=== PATIENT | male | born 1985 | race Caucasian/White ===

== ENCOUNTER 2021-11-14 15:58 | Emergency (ER) | payer OTHER ==
[~2021-11-14] VITALS: Ht 180.3 cm; Wt 81.6 kg
[2021-11-14 16:11] VITALS: BP 101/66
--- NOTE | 2021-11-14 16:26 | NUR ---
PT SEEN AND EXAMINED BY .
[2021-11-14] MEDS ORDERED: CYCLOBENZAPRINE 10 MG TABLET PO ONE (16:30)
[2021-11-14] MEDS ORDERED: KETOROLAC TROMETHAMINE INJ 30 MG/ML VIAL IM ONE (16:30)
[2021-11-14] MEDS ORDERED: KETOROLAC TROMETHAMINE INJ 30 MG/ML VIAL ONE (16:51)
[2021-11-14] MEDS ORDERED: CYCLOBENZAPRINE 10 MG TABLET ONE (16:51)
[2021-11-14] MEDS ORDERED: IBUP-1957 PO (17:10)
[2021-11-14] MEDS ORDERED: CYCL5TAB PO (17:10)
--- NOTE | 2021-11-14 17:34 | NUR ---
Patient discharged to home in stable condition. Written and verbal after care instructions given. Patient verbalizes understanding of instruction.
== END 2021-11-14 17:35 | disposition home or self-care (01) ==
LOC: ER 16:04
DX: M54.42 Lumbago with sciatica, left side (principal)
CPT/HCPCS: 96372; 99283; J1885